=== PATIENT | male | born 1995 | race Caucasian/White ===

== ENCOUNTER 2025-05-03 11:51 | Emergency (ER) | payer OTHER, SELFPAY ==
[2025-05-03 11:53] VITALS: BP 154/93
[2025-05-03 11:54] VITALS: BP 154/93
[2025-05-03 12:01] VITALS: BMI 20.1
--- NOTE | 2025-05-03 12:25 | ED.GENMED ---
History of Present Illness
General
Chief Complaint: Foreign Body Removal
Source: patient and police
Exam Limitations: none
Time Seen by Provider: 05/03/25 12:06
Nursing documentation reviewed up to this point in time: agreed with
History of Present Illness
History of Present Illness:
The patient is a pleasant 29-year-old man who was attempted to be placed in senior care today and after undergoing a ' body scan' to be placed in senior care, 'a spot' was noticed in his lower abdomen, prompting the patient to be ' medically cleared' by the
emergency department. Patient denies swallowing any foreign materials. He denies abdominal pain, nausea, vomiting and bloody stools. Patient reports he feels fine.
Review of Systems
Review of Systems
Allergies reviewed?: Yes
All Other Systems: ROS reviewed and negative except as documented in HPI and ROS
Constitutional: Reports no symptoms
EENT: Reports no symptoms
Respiratory: Reports no symptoms
Cardiac: Reports no symptoms
ABD/GI: Reports no symptoms
: Reports no symptoms
Musculoskeletal: Reports no symptoms
Skin: Reports no symptoms
Neurological: Reports no symptoms
Endocrine: Reports no symptoms
Hematologic/Lymphatic: Reports no symptoms
Psychiatric: Reports no symptoms
Phy Exam
Physical Exam
Physical Exam:
Physical Exam
General: no apparent distress, not acutely ill. Well uncomfortable appearing, smiling and conversational
Neck: supple. no meningeal signs. normal psoterior pharynx
Heart: s1/s2 regular rate and rhythm, no murmur. equal radial pulses.
Lungs: no acute respiratory distress. clear bilaterally
Abdomen: normal bowel sounds. not tender. no CVAT
Neuro: alert and oriented. no focal neurological deficits
Skin: no rash
Psychiatric: well kept. interactive and cooperative
Extremities: no edema. no calf tenderness. negative homans. good distal pulses
Course
Orders/Labs/Results
Orders:
Orders
05/03/25 12:14
Obstruct Series W/PA Chest [CR Obstruct Series W/pa Chest] Urgent
Comment:
Reason For Exam: 'spot seen in low abdomen on body scan for senior care'
Vital Signs
Initial and Last Documented VS:
Initial Vital Signs
Temp Pulse Resp BP Pulse Ox
98.4 F 78 16 154/93 100
05/03/25 11:53 05/03/25 11:53 05/03/25 11:53 05/03/25 11:53 05/03/25 11:53
Last Documented Vital Signs
Temp Pulse Resp BP Pulse Ox
98.4 F 78 16 154/93 100
05/03/25 11:53 05/03/25 11:53 05/03/25 11:53 05/03/25 11:53 05/03/25 12:27
MDM/Problems Addressed
Differential Diagnosis Includes:
Swallowed metal, stool, kidney stone
MDM/Problems Addressed:
Patient presents with no acute complaints but needs evaluation for possible foreign body
Acute Exacerbation and/or Progression of Chronic Illness:
Patient presents with elevated blood pressure, however, he appears well and comfortable and has no complaints. Therefore, I do not feel we need to do emergent blood work. Patient may have chronically elevated blood pressure or might be acutely
elevated due to him dealing with being placed in senior care and coming to the ED.
Acute Exacerbation and/or Progression of Chronic Illness: HTN
*Radiology
Radiology exam reviewed: preliminary read by ED provider (No bowel obstruction. No bowel perforation) and radiology read reviewed
*Pulse Oximetry
SaO2: 100
Oxygen Mode of Delivery: Room air
Patient hypoxic: no
Comment: 100% on room air
*EKG
Interpreted by ED Provider?: NA
*Cigarette Paper Tester Interpretation
Rate: Cigarette Paper Tester- N/A
*Critical Care Note
Total Time (30-74mins, 75-104mins- exclusive of procedures): Not Applicable
Data Reviewed
Source: patient and police
Patient Management
Social determinants of health affecting care: Living situation
Escalation/DeEscalation of care consider admission/obs:
Patient looks extremely well and comfortable. Abdomen is soft and nontender. X-ray shows no sign of bowel perforation or obstruction
ED Attending Note
-
Portions of this chart may have been created with voice recognition software.� Occasional wrong word or��sound alike� substitutions may have occurred due to the inherent limitations of voice recognition software.
Discharge Plan
Departure
Patient Disposition: Home (Routine Discharge)
Date of Disposition: 05/03/25
Time of Disposition: 14:42
Patient with high blood pressure during this ER visit?: Yes
Condition: Good
Covid-19: Not Applicable
Discharge Problem:
Encounter for medical screening examination
Instructions: BLOOD PRESSURE
Referrals:
[facility] [Family Provider, General]
Activity Restrictions/Additional Instructions:
Patient is medically cleared for incarceration
Interventions
Interventions:
*Risk Screen - Suicide Last Done: 05/03/25 11:58
*General Assessment Last Done: 05/03/25 11:58
*Neglect/Abuse Screening Last Done: 05/03/25 11:58
*ED- Fall Risk Assessment Last Done: 05/03/25 11:58
*ED COVID-19 Vaccine History Last Done: 05/03/25 11:58
Discharge Date and Time
Print Language: NICARAGU[place]
== END 2025-05-03 15:15 ==
LOC: EMR 11:51
PROVIDERS: EMERGENCY PHYSICIAN Emergency Medicine
DX: Z02.89 Encounter for other administrative examinations (principal); R03.0 Elevated blood-pressure reading, without diagnosis of hypertension
CPT/HCPCS: 99283; 74022